=== PATIENT | male | born 1995 | race Caucasian/White ===

== ENCOUNTER 2020-03-23 13:43 | Outpatient (CLI) | payer OTHER, SELFPAY ==
[2020-03-23 14:49] LABS: SARS-CoV-2 Ag Positive (Negative)
== END 2020-03-23 13:44 | disposition home or self-care (01) ==
PROVIDERS: PCP Family Medicine; Visit Provider Family Medicine
DX: U07.1 COVID-19 (principal)
CPT/HCPCS: 87426; C9803

== ENCOUNTER 2020-05-13 14:28 | Outpatient (CLI) | payer OTHER, SELFPAY ==
--- NOTE | ~2020-05-13 | XR_ITS ---
EXAMINATION: XR cervical spine 4-5V EXAM DATE: 05/13/2020 15:22 INDICATION: Left shoulder pain, cervical radiculopathy. TECHNIQUE: Cervical spine frontal, lateral, lateral swimmers, and open-mouth odontoid projections. There is no prior study for comparison. FINDINGS: There is no evidence of acute cervical fracture. The odontoid process is intact. Pre-dens space is normal. Prevertebral soft tissue is normal. There are no soft tissue abnormalities identi fied. The vertebral bodies are aligned. Vertebral body and disc heights are well-maintained. Min imal cervical thoracic levocurvature. IMPRESSION: Minimal cervical thoracic levocurvature. Reviewed, dictated and finalized at location A. [employer]
--- NOTE | ~2020-05-13 | XR_ITS ---
EXAMINATION: XR shoulder LT min 2V EXAM DATE: 05/13/2020 15:22 INDICATION: Left shoulder pain, cervical radiculopathy. Symptoms for 2 weeks. No known recent injury provided. TECHNIQUE: The following left shoulder projections obtained: frontal projection with internal rotatio n, frontal projection with external rotation, Grashey, and scapular Y view (4+ views). Comparison is made to prior examination from left humerus exam 2010. FINDINGS: No evidence of left shoulder rotator cuff calcific tendinosis. Unremarkable left glenohum eral and acromioclavicular joints. There are no acute fractures or dislocations identified. There is no subcutaneous gas. The soft tissue is unremarkable. There are no radiopaque foreign bodies. IMPRESSION: 1. Unremarkable left shoulder exam. Reviewed, dictated and finalized at location A. RD CHANGER
== END 2020-05-13 14:29 | disposition home or self-care (01) ==
LOC: CHSIMG 14:30
PROVIDERS: PCP Physician Assistant; Visit Provider Physician Assistant
DX: M25.512 Pain in left shoulder (principal); M54.12 Radiculopathy, cervical region
CPT/HCPCS: 72050; 73030

== ENCOUNTER 2021-03-27 13:40 | Outpatient (CLI) | payer OTHER, SELFPAY ==
[2021-03-27 14:46] LABS: SARS-CoV-2 Ag Positive (Negative)
== END 2021-03-27 13:41 | disposition home or self-care (01) ==
LOC: CHSLAB 13:42
PROVIDERS: PCP Physician Assistant; Visit Provider Family Medicine
DX: U07.1 COVID-19 (principal)
CPT/HCPCS: 87426; C9803

== ENCOUNTER 2021-06-29 09:34 | Emergency (ER) | payer OTHER, SELFPAY ==
[2021-06-29 09:40] VITALS: BP 141/91; PULSE 71; RESP 14; TEMP 36.1; O2SAT 98
--- NOTE | 2021-06-29 09:58 | ED.GENADULT ---
HPI - General Adult General Chief complaint: Wound/Laceration Stated complaint: CUT HAND Source: patient and family Mode of arrival: ambulatory History of Present Illness HPI narrative: David presented to the ED after he was cutting some food and he sliced a shallow piece of skin off his right lateral thumb. There were no other injuries. Related Data Home Medications Medication Instructions Recorded Confirmed No Home Medications 06/29/21 06/29/21 Allergies Allergy/AdvReac Type Severity Reaction Status Date / Time No Known Allergies Allergy Verified 06/29/21 09:50 Review of Systems Constitutional: Constitutional: Reports no additional constitutional complaints Eyes: Eyes: Reports no additional eye complaints ENT: Reports system reviewed and no additional complaints, except as documented Cardiovascular: Cardiovascular: Reports no additional cardiovascular complaints Respiratory: Respiratory: Reports no additional respiratory complaints Gastrointestinal: Gastrointestinal: Reports no additional gastrointestinal complaints Genitourinary: Genitourinary: Reports no additional male genitourinary complaints Musculoskeletal: Musculoskeletal: Reports no additional musculoskeletal complaints Integumentary/Breasts: Skin/Breast: Reports system reviewed and no additional complaints, except as docu Neurologic: Reports system reviewed and no additional complaints, except as documented Psychiatric: Psychiatric: Reports no additional psychiatric complaints Endocrine: Endocrine: Reports no additional endocrine complaints Hematologic/Lymphatic: Hematologic/Lymphatic: Reports no additional hematologic/lymphatic complaints Allergic/Immunologic: Allergic/Immunologic: Reports no additional allergic/immunologic complaints Exam Const: General: no acute distress and alert Orientation/consciousness: patient oriented x3 Limitations: No altered mental status HENMT: Head: normal to inspection Eyes: Conjunctivae: conjunctivae normal Pupils: Equal, round and reactive pupils present Neck: Neck: normal visual inspection Chest: Chest palpation & inspection: normal inspection of the chest Resp: Effort & Inspection: normal respiratory effort Cardio: Rate: regular rate Skin: Other: small avulsion 7mm by 3 mm on the lateral right thumb Neuro: General: patient oriented x3 and moves all extremities Other: peripheral sensation intact on the thumb Extrem: General: normal to inspection Psych: Appearance: grossly normal Mental Status: mental status grossly normal Thought content: Yes Normal thought content present Course Course Emergency Course: Wound cleaned extensively and bandaged. He was given a Tdap. Vital Signs Vital signs: Vital Signs Temperature 97 F L 06/29/21 09:40 Pulse Rate 71 06/29/21 09:40 Respiratory Rate 14 06/29/21 09:40 Blood Pressure 141/91 H 06/29/21 09:40 Pulse Oximetry 98 06/29/21 09:40 Temperature 97 F L 06/29/21 09:40 Pulse Rate 71 06/29/21 09:40 Respiratory Rate 14 06/29/21 09:40 Blood Pressure 141/91 H 06/29/21 09:40 Pulse Oximetry 98 06/29/21 09:40 Medical Decision Making Vital Signs Vital Signs: Vital Signs Temperature 97 F L 06/29/21 09:40 Pulse Rate 71 06/29/21 09:40 Respiratory Rate 14 06/29/21 09:40 Blood Pressure 141/91 H 06/29/21 09:40 Pulse Oximetry 98 06/29/21 09:40 Temperature 97 F L 06/29/21 09:40 Pulse Rate 71 06/29/21 09:40 Respiratory Rate 14 06/29/21 09:40 Blood Pressure 141/91 H 06/29/21 09:40 Pulse Oximetry 98 06/29/21 09:40 Discharge Plan Discharge Clinical Impression: Avulsion of skin Patient Disposition: Home, Self-Care Condition: Stable Instructions: Skin Avulsion (ED) Additional Instructions: Please return for any new or concerning symptoms. Prescriptions: No Action No Home Medications RF: 0 Follow-up/Referrals: Lisa,MELISSA Daniels [Primary Care
[2021-06-29] MEDS: TETANUS,DIPHTHERIA,AC PERTUSSIS ADULT 0.5 ML (ADACEL) IM (10:03)
== END 2021-06-29 10:11 | disposition home or self-care (01) ==
PROVIDERS: Emergency Provider Family Medicine; PCP Physician Assistant
DX: S61.011A Laceration without foreign body of right thumb without damage to nail, initial encounter (principal); W45.8XXA Other foreign body or object entering through skin, initial encounter
CPT/HCPCS: 90471; 90715; 99282